=== PATIENT | female | born 1970 | race African-American/Black ===

== ENCOUNTER 2024-05-29 19:38 | Emergency (ER) | payer OTHER ==
[~2024-05-29] VITALS: Ht 167.6 cm; Wt 78.5 kg
[2024-05-29] MEDS ORDERED: METH4TAB21 PO (19:57)
[2024-05-29] MEDS ORDERED: DEXAMETHASONE SOD PHOSPHATE 4 MG INJ ONE (20:06)
[2024-05-29] MEDS ORDERED: DEXAMETHASONE SOD PHOSPHATE 10 MG INJ ONE (20:09)
[2024-05-29] MEDS: DEXAMETHASONE SOD PHOSPHATE 4 MG INJ MC ONE (20:25)
[2024-05-29 20:27] VITALS: BP 156/91; TEMP 99.5; O2SAT 98
== END 2024-05-29 20:27 | disposition home or self-care (01) ==
LOC: ER 19:38
DX: J02.8 Acute pharyngitis due to other specified organisms (principal); B97.89 Other viral agents as the cause of diseases classified elsewhere; R21 Rash and other nonspecific skin eruption
CPT/HCPCS: 99283; J1100; A4606; A4663